=== PATIENT | male | born 1990 | race Caucasian/White ===

== ENCOUNTER 2016-11-16 23:44 | Emergency (ER) | payer OTHER ==
[~2016-11-16] VITALS: Ht 167.6 cm; Wt 67.4 kg
[2016-11-16 23:46] VITALS: TEMP 37; Ht 167.6 cm; Wt 67.4 kg
[2016-11-16] MEDS ORDERED: FENTANYL CITRATE INJ 50 MCG/1 ML 2 ML VIAL IV STA (23:55)
[2016-11-16] MEDS ORDERED: SODIUM CHLORIDE 0.9% 1000ML 1,000 ML IV STA (23:55)
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
[2016-11-17] MEDS ORDERED: DIPHTHERIA/TETANUS/PERTUSSIS 0.5 ML SYR/VIAL IM. ONE
[2016-11-17] MEDS ORDERED: OPTIRAY 320 IV PRN (00:15)
[2016-11-17] MEDS ORDERED: SERT-234 PO (00:21)
[2016-11-17] MEDS ORDERED: SERT50TA PO (00:22)
[2016-11-17 00:29] LABS: HEMATOCRIT 40.5 % (42-52); MEAN CELL VOLUME 93.5 fL (80-100); MEAN CORPUSCULAR HEMOGLOBIN 32.6 pg (25-34); MEAN CORPUSCULAR HGB CONC 34.8 g/dl (32-36); MEAN PLATELET VOLUME 9.3 fL (7.4-10.4); PLATELET COUNT 205 K/uL (130-400); RED BLOOD COUNT 4.33 M/uL (4.7-6.1); WHITE BLOOD COUNT 7.62 K/uL (4.8-10.8)
[2016-11-17 00:49] LABS: BUN/CREATININE RATIO 15.9 (10-20); CALCIUM 8.5 mg/dl (8.5-10.1); CREATININE 1.2 mg/dl (0.60-1.40); POTASSIUM 3.6 mmol/L (3.5-5.1)
[2016-11-17 01:00] LABS: BASO % 0.5 %; BASO ABS # 0.04 K/uL (0-0.2); COMPLETE YES; EOS % 3.4 %; IG% 0.3 %; LYMPH % 57.1 %; LYMPH ABS # 4.35 K/uL (1.2-3.4); MONO % 7.9 %; NEUT % 30.8 %
[2016-11-17] MEDS ORDERED: HYDROmorphone INJ 1 MG/ML SYR IV STA ×2 (01:11→03:47)
[2016-11-17] MEDS ORDERED: LIDOCAINE/EPINEPH/TETRACAINE 1 EA SYR EXT STA (01:31)
[2016-11-17] MEDS ORDERED: XYLOCAINE 1%/SOD BICARB 20 ML VIAL INFIL ONE (01:45)
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
[2016-11-17 03:46] VITALS: BP 131/76; PULSE 66; O2SAT 97
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
== END 2016-11-17 03:55 | disposition short-term general hospital (02) ==
LOC: EDBD 23:44 → C.EDB 23:47
DX: S36.239A Laceration of unspecified part of pancreas, unspecified degree, initial encounter (principal); S37.812A Contusion of adrenal gland, initial encounter; S01.81XA Laceration without foreign body of other part of head, initial encounter; Z23 Encounter for immunization; F10.929 Alcohol use, unspecified with intoxication, unspecified; Y90.6 Blood alcohol level of 120-199 mg/100 ml; V13.4XXA Pedal cycle driver injured in collision with car, pick-up truck or van in traffic accident, initial encounter; Y93.55 Activity, bike riding; F17.210 Nicotine dependence, cigarettes, uncomplicated; Z79.899 Other long term (current) drug therapy

== ENCOUNTER → 2016-11-16 | Outpatient (CLI) | payer OTHER ==
[~2016-11-16] MED LIST: SERT-234 PO; SERT50TA PO
== END | disposition home or self-care (01) ==
LOC: C.LAB 23:50
DX: Z02.83 Encounter for blood-alcohol and blood-drug test (principal)